=== PATIENT | female | born 1960 | race Caucasian/White ===

== ENCOUNTER 2016-12-28 20:58 | Emergency (ER) | payer MEDICAID, OTHER ==
[~2016-12-28] VITALS: Ht 160 cm; Wt 70.0 kg
[2016-12-28 21:24] VITALS: Ht 160 cm; Wt 70.0 kg
--- NOTE | 2016-12-28 21:28 | ERD ---
ER Documentation Chief Complaint Chief Complaint Chest Pain HPI This is a 56-year-old female with a history of high cholesterol, hypertension, type 2 diabetes, significant anxiety who is presenting with a transient episode of chest pain. Approximally 45 minutes prior to arrival, she developed substernal 7 out of 10 chest pain radiating to her left arm while laying down. It was associated with nausea and palpitations and anxiety. She had no shortness of breath, no dyspnea, no sweating. She was given nitro and aspirin prior to arrival. The patient is currently symptom free. The patient endorses anxiety episodes similar to this in the past. She endorses significant stress in her life with work and family and fighting children. The patient denies feeling sick recently. The patient denies fever or chills. The patient has had no headache or vision changes. The patient does not endorse neck or back pain. The patient denies lightheadedness or dizziness. The patient denies vomiting. The patient denies abdominal pain or changes to bowel movements or urination. The patient has had no focal deficits. The patient has had no weakness or numbness or tingling to the face or extremities. ROS All systems reviewed and are negative except as per history of present illness. Allergies Allergies: Coded Allergies: No Known Allergy (Unverified , 12/28/16) PMhx/Soc History of Surgery: No Hx Neurological Disorder: No Hx Respiratory Disorders: No Hx Cardiac Disorders: Yes (HTN, HLD, DM) Hx Psychiatric Problems: No Hx Miscellaneous Medical Probl: No Hx Alcohol Use: No Hx Substance Use: No Hx Tobacco Use: No FmHx Family History: diabetes Physical Exam Vitals Vital Signs Date Time Temp Pulse Resp B/P Pulse Ox O2 Delivery O2 Flow Rate FiO2 12/28/16 21:51 89 18 136/82 100 Room Air 12/28/16 21:24 104 149/91 100 Physical Exam Const: No apparent distress, well-developed, well-nourished Head: Normocephalic, Atraumatic Eyes: Normal Conjunctiva. Extraocular movements intact. Pupils equal, round and reactive to light ENT: Normal External Ears, Nose and Mouth. Neck: Full range of motion. No meningismus. Resp: Clear to auscultation bilaterally, No wheezes, rales or rhonchi Cardio: Regular rate and rhythm. No murmurs, rubs or gallops Abd: Soft, non tender, non distended. Normal bowel sounds Skin: No petechiae or rashes Back: No midline tenderness. No CVA tenderness Ext: No cyanosis, or edema Neur: Awake and alert, oriented 4. Cranial nerves intact. No facial droop. Normal strength, sensation and coordination. Psych: Normal Mood and Affect Result Diagram: 12/28/16211812/28/162118 Results 24 hrs Laboratory Tests Test 12/28/16 21:19 White Blood Count 12.410^3/ul Red Blood Count 4.3410^6/ul Hemoglobin 10.8g/dl Hematocrit 34.8% Mean Corpuscular Volume 80.2fl Mean Corpuscular Hemoglobin 24.9pg Mean Corpuscular Hemoglobin Concent 31.0g/dl Red Cell Distribution Width 14.7% Platelet Count 21371^3/UL Mean Platelet Volume 11.3fl Neutrophils % 50.7% Lymphocytes % 41.6% Monocytes % 4.2% Eosinophils % 2.5% Basophils % 0.7% Nucleated Red Blood Cells % 0.0/100WBC Neutrophils # 6.310^3/ul Lymphocytes # 5.110^3/ul Monocytes # 0.510^3/ul Eosinophils # 0.310^3/ul Basophils # 0.110^3/ul Nucleated Red Blood Cells # 0.010^3/ul Sodium Level 142mmol/L Potassium Level 3.3mmol/L Chloride Level 101mmol/L Carbon Dioxide Level 24mmol/L Anion Gap 20 Blood Urea Nitrogen 14mg/dl Creatinine 0.77mg/dl Glucose Level 237mg/dl Calcium Level 9.1mg/dl Troponin I < 0.012ng/ml Current Medications Medications (Trade) Dose Ordered Sig/Bertha Route PRN Reason Start Time Stop Time Status Last Admin Dose Admin Potassium Chloride (Klor-Con 20) 40 meq ONCE STAT PO 12/28/16 23:40 12/28/16 23:41 DC 12/28/16 23:52 Procedures/MDM MDM The patient's presentation warrants further investigation via a cardiac workup. She does have a history of anxiety, which this could be today. However, I will evaluate for cardiac pathology. LABS The patient's blood work was obtained and reviewed. The patient's CBC shows mild leukocytosis and no left shift. I believe this to be reactive. The patient is afebrile and does not appear systemically ill. I do not suspect a systemic infection. The patient has a mild anemic today that does not require emergent treatment. The patient's platelet count is unremarkable. The patient's CMP shows no signs of metabolic or electrolyte emergencies. She is mildly hypokalemic which may be repleted. She has hyperglycemia, but no AG and I do not suspect DKA. The patient has unremarkable renal and hepatic function testing. Troponin was negative. EKG EKG read by me: Rate/Rhythm: The rhythm, sinus tachycardia at 101 bpm Intervals: Normal [place]: Left shifted Impression: No repolarization abnormality. No evidence of ischemia. IMAGING CXR FINDINGS: The heart is normal in size. There are low lung volumes with no focal consolidations, pleural effusions, or pneumothorax. Degenerative changes of the spine and shoulder joints are present. IMPRESSION: No acute cardiopulmonary disease. Electronically viewed and signed by Physician Torres on 12/28/2016 22:20 TREATMENT/DISPOSITION Her tachycardia resolved after she settled down in the ER room. The patient's workup is reassuring. I would place the patient's HEART score at 3 for age and risk factors. I have low suspicion for a cardiac pathology. Her EKG and troponin are reassuring. At this time, I feel that the patient stable for discharge. The patient will need follow-up with his primary care physician in 1-3 days. She may require cardiology follow up for stress testing, but this decision may be deferred to the PCP. The patient will be given strict precautions with which to return to the emergency department including recurrence of pain. The patient's blood pressure was elevated at greater than 120/80 while in the emergency department. The patient was otherwise stable with no evidence of hypertensive urgency or emergency or end organ damage. The patient does not require admission for blood pressure control. I have discussed with the patient the risks of hypertension. I have advised the patient to follow up with the primary care physician for outpatient monitoring and treatment for hypertension in 2-3 days. I have instructed the patient to return to the ER for any new or worsening symptoms including chest pain, shortness of breath, headache, blurred vision, confusion, nausea, vomiting or LOC. Disclaimer: Inadvertent spelling and grammatical errors are likely due to EHR/ dictation software use and do not reflect on the overall quality of patient care. Note that the electronic time recorded on this note does not necessarily reflect the actual time of the patient encounter. Departure Diagnosis: Primary Impression: Chest pain Chest pain type: unspecified Qualified Code: R07.9 - Chest pain, unspecified type Additional Impression: Anxiety Condition: SAMUEL Gillespie MD Dec 28, 2016 21:28
[2016-12-28 21:51] VITALS: BP 136/82; PULSE 89; RESP 18
[2016-12-28 22:03] LABS: ABNORMAL IP MESSAGE 1; BASOPHIL # 0.1 10^3/ul (0.0-0.1); BASOPHILS % 0.7 % (0.0-2.0); EOSINOPHILS # 0.3 10^3/ul (0.0-0.5); EOSINOPHILS % 2.5 % (0.0-7.0); HEMATOCRIT 34.8 % (37.0-47.0); HEMOGLOBIN 10.8 g/dl (12.0-16.0); LYMPHOCYTES # 5.1 10^3/ul (0.8-2.9); LYMPHOCYTES % 41.6 % (15.0-51.0); MEAN CORPUSCULAR HEMOGLOBIN 24.9 pg (29.0-33.0); MEAN CORPUSCULAR VOLUME 80.2 fl (82.0-101.0); MEAN PLATELET VOLUME 11.3 fl (7.4-10.4); MONOCYTE # 0.5 10^3/ul (0.3-0.9); MONOCYTES % 4.2 % (0.0-11.0); NEUTROPHIL # 6.3 10^3/ul (1.6-7.5); NEUTROPHILS % 50.7 % (39.0-77.0); PLATELET COUNT 396 10^3/UL (140-415); RED BLOOD COUNT 4.34 10^6/ul (4.20-5.40); RED CELL DISTRIBUTION WIDTH 14.7 % (11.5-14.5); WHITE BLOOD COUNT 12.4 10^3/ul (4.8-10.8)
[2016-12-28 22:11] LABS: POSITIVE DIFF @See below
--- NOTE | 2016-12-28 22:20 | RADRPT ---
PROCEDURE: XR Chest. CLINICAL INDICATION: Chest Pain. TECHNIQUE: Single frontal view of the chest was obtained COMPARISON: None FINDINGS: The heart is normal in size. There are low lung volumes with no focal consolidations, pleural effusions, or pneumothorax. Degenerative changes of the spine and shoulder joints are present. IMPRESSION: 1. No acute cardiopulmonary disease. RPTAT:AAJJ Physician Torres Date Time Electronically viewed and signed by Denzel Downs Physician on 12/28/2016 22:20 QL/
[2016-12-28 22:26] LABS: ANION GAP 20 (8-16); BLOOD UREA NITROGEN 14 mg/dl (7-20); CALCIUM 9.1 mg/dl (8.4-10.2); CARBON DIOXIDE 24 mmol/L (21-31); CHLORIDE 101 mmol/L (97-110); CREATININE 0.77 mg/dl (0.44-1.00); GLUCOSE 237 mg/dl (70-220); POTASSIUM 3.3 mmol/L (3.5-5.1); SODIUM 142 mmol/L (135-144)
[2016-12-28 22:43] LABS: TROPONIN-I < 0.012 ng/ml (0.00-0.12)
[2016-12-28] MEDS ORDERED: POTASSIUM CHLORIDE (SR) 20 MEQ TAB PO STA (23:40)
== END 2016-12-28 23:53 | disposition home or self-care (01) ==
LOC: E/R 20:58
DX: R07.9 Chest pain, unspecified (principal); F41.9 Anxiety disorder, unspecified; E11.9 Type 2 diabetes mellitus without complications; I10 Essential (primary) hypertension
CPT/HCPCS: 36415; 71010; 80048; 84484; 85025; Z7502; Z7610; 93005